=== PATIENT | male | born 1970 | race Caucasian/White ===

== ENCOUNTER 2017-01-14 16:18 | Emergency (ER) | payer SELFPAY ==
[2017-01-14] MEDS ORDERED: Lidocaine 1% 30 ML SDV INJECT ONE (16:32)
[2017-01-14 17:28] VITALS: BP 157/93
--- NOTE | 2017-01-15 08:25 | ER ---
Date of Service: 01/14/2017 HISTORY OF PRESENT ILLNESS: The patient presents to the emergency room with complaints of a laceration to the webbing between his index finger and thumb of his left hand. The patient states that he was attempting to open a package at work when the knife slipped and he suffered the laceration. He states that he is not experiencing any decreased movement to the extremity or to the index finger or thumb. He denies any injury other than what was previously mentioned. PAST MEDICAL HISTORY: 1. Depression. 2. Anxiety. 3. GERD. MEDICATIONS: 1. Wellbutrin 500 mg p.o. daily. 2. Zoloft 100 mg p.o. daily. 3. Omeprazole 20 mg p.o. daily. ALLERGIES: NKDA. REVIEW OF SYSTEMS: Denies any numbness or tingling distal to the area of injury. PHYSICAL EXAMINATION: General: This is a 47-year-old male patient, who is in no acute distress. Vital Signs: Blood pressure is initially 172/100, was rechecked and was found to be 157/93, pulse rate is 98, respiratory rate 18, O2 saturations 100%, temp is 97.3. Skin: Warm, pink, and dry. Musculoskeletal: The patient has a 1 cm superficial laceration to the webbing between his index finger and thumb. No trauma noted to the underlying structures. Neurovascular, circulation, sensation, and motor function all within normal limits to the distal portion of the extremities. EMERGENCY ROOM COURSE: The laceration was cleansed with Shur-Clens and normal saline. The patient's hand was prepped in the usual sterile fashion. A total of 3 interrupted 4-0 nylon sutures was used to close the laceration. Excellent hemostasis and wound approximation was achieved. The patient tolerated this well. He remained stable in my care in the emergency room. ASSESSMENT: 1 cm laceration to left hand. PLAN: The patient will be discharged. Return if there is any redness, swelling, or discharge. Sutures out in 10 days. Keep the area dry for 24 hours and keep covered if he anticipates it getting dirty, otherwise keep open to the air as much as possible. All questions were answered. MWK: 01/14/2017 20:50:54 MODL: 01/14/2017 23:23:13 /[id number]
== END 2017-01-14 17:21 | disposition home or self-care (01) ==
LOC: VM.ED 16:18
DX: S61.412A Laceration without foreign body of left hand, initial encounter (principal); F32.9 Major depressive disorder, single episode, unspecified; F41.9 Anxiety disorder, unspecified; K21.9 Gastro-esophageal reflux disease without esophagitis; Z79.899 Other long term (current) drug therapy; W26.0XXA Contact with knife, initial encounter; Y99.0 Civilian activity done for income or pay
CPT/HCPCS: 12001; 99282-GF-25; 99283

== ENCOUNTER 2021-05-23 05:56 | Day surgery (SDC) | payer MEDICAID ==
[2021-05-23] MEDS ORDERED: Lactated Ringers 1,000 ML IV SCH (07:00)
[2021-05-23] MEDS ORDERED: Citric Acid/Sodium Citrate Solution 30 ML Cup PO ONE (07:38)
[2021-05-23] MEDS ORDERED: Citric Acid/Sodium Citrate Solution 30 ML Cup ONE (07:40)
[2021-05-23] MEDS ORDERED: fentaNYL 100 MCG/2 ML SDV ONE (07:56)
[2021-05-23] MEDS ORDERED: Propofol 200 MG/20 ML SDV ONE (07:56)
[2021-05-23 08:34] VITALS: BP 150/93; PULSE 63
--- NOTE | 2021-05-27 11:37 | OR ---
PREOPERATIVE DIAGNOSIS: Screening colonoscopy. POSTOPERATIVE DIAGNOSIS: Colon polyps. PROCEDURE PERFORMED: Total flexible colonoscopy with biopsies. ANESTHESIA: MAC anesthesia. COMPLICATIONS: None apparent. BLOOD LOSS: Minimal. FINDINGS: Ascending colon polyp, 2 mm, cold forceps. Start time 0802, cecum 0805, stop 0814. BOWEL PREP: [place] class 2. INDICATIONS FOR PROCEDURE: Mr. Lenz is a 51-year-old male here for his first screening colonoscopy. He has had no bloody or dark black stools. Denies any family history of colon cancer. DETAILS OF PROCEDURE: Informed consent was obtained. The patient was brought to the procedure room. MAC anesthesia was induced per anesthesia colleagues. He was placed in left lateral decubitus position. The colonoscope was introduced into the rectum and advanced all the way to the cecum, was then slowly withdrawn. The ileocecal valve and appendix were photographed to confirm advancement to the cecum. No pathology was identified except for what is mentioned in the above findings section. A retroflexed view was obtained and the scope was removed. The patient tolerated the procedure well and was awoken from anesthesia by Anesthesia colleagues without incident. PATHOLOGY: Colon, ascending polyp Tubular adenoma No high-grade dysplasia or malignancy identified. Recommend repeat screening colonoscopy in 5 years. RKM: 05/23/2021 08:22:27 MODL: 05/23/2021 14:12:08 /[id number]
== END 2021-05-23 09:48 | disposition home or self-care (01) ==
LOC: VM.SDS 05:56
PROVIDERS: ATTEND Student in an Organized Health Care Education/Training Program
DX: Z12.11 Encounter for screening for malignant neoplasm of colon (principal); D12.2 Benign neoplasm of ascending colon; E11.9 Type 2 diabetes mellitus without complications; I10 Essential (primary) hypertension; E78.2 Mixed hyperlipidemia; E66.01 Morbid (severe) obesity due to excess calories; Z68.41 Body mass index [BMI] 40.0-44.9, adult; F33.1 Major depressive disorder, recurrent, moderate; F41.1 Generalized anxiety disorder; Z79.84 Long term (current) use of oral hypoglycemic drugs; Z87.891 Personal history of nicotine dependence
CPT/HCPCS: 00812; 82947; A9270-GY; J2704; J3010; J7120